=== PATIENT | male | born 1990 | race Caucasian/White ===

== ENCOUNTER 2022-12-10 11:15 | Outpatient (REF) | payer OTHER, SELFPAY ==
[2022-12-10 13:38] LABS: MANUAL DIFF FLAG NO
[2022-12-10 13:53] LABS: Basophils Percent Auto 0.5 % (0-2); Eosinophils Absolute Auto 0.1 X10*3/uL (0.0-0.4); Eosinophils Percent Auto 1.2 % (0-4); Hematocrit 44.4 % (42.0-52.0); Hemoglobin 15.5 g/dl (14.0-18.0); Imm Gran Abs Auto 0.01 X10*3/uL (0.00-0.03); Imm Gran Pct Auto 0.2 % (0.0-0.4); Lymphocytes Absolute Auto 2.2 X10*3/uL (1.2-4.9); Lymphocytes Percent Auto 38.6 % (20-40); Mean Corpuscular HGB Conc 34.9 g/dl (31.0-36.0); Mean Corpuscular Hemoglobin 30.5 pg (27.0-33.0); Mean Corpuscular Volume 87.4 fL (80.0-98.0); Mean Platelet Volume 9.7 fL (9.4-12.4); Monocytes Absolute Auto 0.3 X10*3/uL (0.1-1.2); Monocytes Percent Auto 5.9 % (2-11); Neutrophils Absolute Auto 3.1 x10*3/uL (2.0-8.3); Neutrophils Percent Auto 53.6 % (45-73); Platelet Count 294 X10*3/uL (160-400); Red Blood Count 5.08 X10*6/uL (4.60-5.80); Red Cell Distribution Width 11.5 % (11.0-16.0); White Blood Count 5.8 X10*3/uL (4.8-10.8)
[2022-12-10 14:44] LABS: Thyroid Stimulating Hormone 1.11 uIU/mL (0.32-4.0)
[2022-12-10 14:54] LABS: Anion Gap 16 (12-20)
[2022-12-10 15:00] LABS: Alanine Aminotransferase 19 U/L (0-40); Albumin Level 4.8 g/dL (3.5-5.0); Alkaline Phosphatase 51 U/L (39-117); Aspartate Amino Transferase 19 U/L (5-37); Blood Urea Nitrogen 13 mg/dL (9-16); Calcium 9.3 mg/dL (8.4-10.2); Carbon Dioxide 24 mmol/L (22-29); Chloride 102 mmol/L (96-108); Cholesterol 201 mg/dL (<200); Estimated Glomerular Filt Rate > 60; Glucose Random 86 mg/dL (60-115); HDL Cholesterol 61 mg/dL (>40); Iron 92 mcg/dL (45-160); LDL Cholesterol Calculated 123 mg/dL (<100); Percent Iron Saturation 31 % (15-50); Potassium 4.1 mmol/L (3.3-5.1); Sodium 138 mmol/L (135-145); Total Iron Binding Capacity 301 mcg/dL (228-428); Total Protein 7.4 g/dL (6.5-8.0); Triglycerides 86 mg/dL (<150); Unsaturated Iron Binding 209 ug/dL
[2022-12-14 16:38] LABS: Testosterone, Free 73.7 pg/mL (35.0-155.0); Testosterone, Total 505 ng/dL (250-1100)
== END 2022-12-10 11:16 | disposition home or self-care (01) ==
LOC: HO.MANLDS 11:15
PROVIDERS: Physician Assistant; Visit Provider Internal Medicine
DX: Z00.00 Encounter for general adult medical examination without abnormal findings (principal); R53.83 Other fatigue
CPT/HCPCS: 36415; 80053; 80061; 83540; 84402; 84403; 84443; 85025

== ENCOUNTER 2024-12-31 09:43 | Outpatient (REF) | payer OTHER, SELFPAY ==
--- OUTSIDE RECORDS SUMMARY | 2024-12-31 11:07 | XMS_ITS | Clinical Summary ---
Author Organization [facility] Address [address] [place], [place] [id number] Phone Care Team Providers Care Clinical Research Specialist Name Role Phone Amirah Sarah CULLEN Primary Care Provider Allergies Active Allergy Reactions Criticality Noted Date Comments Sulfa (Sulfonamide Antibiotics) 05/2021 Medications hydrocortisone (ANUSOL-HC) 2.5 % rectal cream 2 Active omeprazole (PRILOSEC) 20 MG capsule Take by mouth daily. 2 Active RECTIV 0.4 % (w/w) Oint APPLY 1 INCH RECTALLY TWICE DAILY 30 g 3 Active lidocaine (LIDAMANTLE) 3 % Crea Compound cream: Nifedipine 2%, Lidocaine 3%, Hydrocortisone 3%. Apply small a mount to inside of anus three times daily 60 g 1 3 Active Social History Tobacco Use Types Packs/Day Years Used Date Smoking Tobacco: Never Smokeless Tobacco: Former Education Answer Date Recorded Are you interested in more education? Not on citlalli e 06/22/2022 Are you concerned about learning? Not on file 06/22/2022 No 06/22/2022 No 06/22/2022 Digital Access Answer Date Recorded No 07/21/2022 No 07/21/2022 No 07/21/2022 Reliable internet access at home? Not on file 07/21/2022 Device with a working camera? Not on file Sex and Gender Information Value Date Recorded Sex Assigned at Not on file Legal Sex Male 2:22 PM EDT Gender Identity Not on file Sexual Orientation Not on file Last Filed Vital Signs Vital Sign Reading Time Taken Comments Blood Pressure 126/72 12/28/2021 10:55 AM EDT Pulse 60 12/28/2021 10:55 AM EDT Temperature 36.4 C (97.5 F) 12/28/2021 10:55 AM EDT Respiratory Rate - - Oxygen Saturation 98% 12/28/2021 10:55 AM EDT Inhaled Oxygen Concentration - - Weight 88.5 kg (195 lb 3.2 oz) 12/28/2021 10:55 AM EDT Height 177.8 cm (5' 10 ) 12/28/2021 10:55 AM EDT Body Mass Index 28.01 12/28/2021 10:55 AM EDT Plan of Treatment Health Maintenance Due Date Last Done Comments LIPID PANEL 1988 DEPRESSION SCREENING 2000 HEPATITIS C SCREENING 2006 HIV ONE-TIME SCREENING (18-65 YEARS) 2006 Adult Td,Tdap Booster 07/15/2021 07/16/2011 , 04/28/2011, 08/07/2006, Additional history exists SCREENING FOR DIABETES 06/11/2023 INFLUENZA VACCINE (#1) 2024 , 01/09/2020, 11/28/2018, Additional history exists COVID-19 VACCINE (2024- season) 2024 06/21/2020, 05/12/2020 HIB VACCINES Completed 07/02/1990 MENINGOCOCCAL VACCINES (ACWY) Completed 08/07/2006, 01/09/2006 HEPATITIS A VACCINES Completed 06/27/2007, 08/14/19 07 SMOKING STATUS SCREENING (Once After 26 Yrs) Completed 12/28/2021 MENINGOCOCCAL VACCINES (B) Aged Out N o longer eligible based on patient's age to complete this topic PNEUMOCOCCAL VACCINES (0-49 years) Aged Out No longer eligible based on patient's age to complete this topic Medical Devices Not on file Insurance [facility] [place] [facility] [place] Care Teams Clinical Research Specialist Relationship Specialty Start Date End Date Sarah Macario PA [address] [facility] [place] [address] PCP - General 12/21/21 Additional Source Comments The information contained in this document represents components of the legal health record. It is not the complete legal health record.[facility]
[2024-12-31 13:18] LABS: MANUAL DIFF FLAG NO
[2024-12-31 13:34] LABS: Hemoglobin A1C 74.4583 umol/L; Total Hemoglobin (HGBA1C) 2811.5485 umol/L
[2024-12-31 13:42] LABS: Hematocrit 46.2 % (42.0-52.0); Hemoglobin 16.4 g/dl (14.0-18.0); Imm Gran Abs Auto 0.02 X10*3/uL (0.00-0.03); Imm Gran Pct Auto 0.4 % (0.0-0.4); Lymphocytes Absolute Auto 2.1 X10*3/uL (1.2-4.9); Mean Corpuscular HGB Conc 35.5 g/dl (31.0-36.0); Mean Corpuscular Hemoglobin 30.6 pg (27.0-33.0); Mean Corpuscular Volume 86.2 fL (80.0-98.0); NRBC Abs Auto 0.000 X10*3/uL (0.0-0.012); NRBC Pct Auto 0.0 /100WBC (0.0-0.2); Platelet Count 287 X10*3/uL (160-400); Red Blood Count 5.36 X10*6/uL (4.60-5.80); White Blood Count 5.2 X10*3/uL (4.8-10.8)
[2024-12-31 13:59] LABS: Alanine Aminotransferase 18 U/L (0-40); Albumin Level 5.0 g/dL (3.5-5.0); Alkaline Phosphatase 55 U/L (39-117); Anion Gap 15 (12-20); Aspartate Amino Transferase 24 U/L (5-37); Blood Urea Nitrogen 12 mg/dL (9-16); Calcium 9.2 mg/dL (8.4-10.2); Carbon Dioxide 26 mmol/L (22-29); Chloride 104 mmol/L (96-108); Cholesterol 211 mg/dL (<200); Estimated Glomerular Filt Rate > 60; HDL Cholesterol 62 mg/dL (>40); Potassium 4.2 mmol/L (3.3-5.1); Sodium 141 mmol/L (135-145); Total Protein 7.6 g/dL (6.5-8.0); Triglycerides 80 mg/dL (<150)
== END 2024-12-31 09:44 | disposition home or self-care (01) ==
LOC: HO.MANLDS 09:43
PROVIDERS: Visit Provider Physician Assistant
DX: Z00.00 Encounter for general adult medical examination without abnormal findings (principal); Z13.1 Encounter for screening for diabetes mellitus; Z13.6 Encounter for screening for cardiovascular disorders
CPT/HCPCS: 36415; 80053; 80061; 83036; 85025